=== PATIENT | female | born 1995 | race Caucasian/White ===

== ENCOUNTER 2019-05-14 20:17 | Emergency (ER) | payer MEDICAID ==
[~2019-05-14] VITALS: Ht 160 cm; Wt 86.0 kg
[~2019-05-14 20:17] MED LIST: IBUP-1984 PO
[2019-05-14 20:25] VITALS: BP 120/77
[2019-05-14] MEDS ORDERED: ipratropium/albuterol 3ml nebule NEB ONE (21:35)
[2019-05-14] MEDS ORDERED: predniSONE 20 mg tablet PO ONE (21:35)
[2019-05-14] MEDS ORDERED: PRED20TA PO (21:39)
[2019-05-14] MEDS ORDERED: ALBU8HFA PO (21:39)
== END 2019-05-14 22:35 | disposition home or self-care (01) ==
LOC: ER 20:18
DX: J06.9 Acute upper respiratory infection, unspecified (principal); J45.901 Unspecified asthma with (acute) exacerbation; G89.29 Other chronic pain; F17.200 Nicotine dependence, unspecified, uncomplicated; F12.90 Cannabis use, unspecified, uncomplicated; Z79.899 Other long term (current) drug therapy
CPT/HCPCS: 93005; 94640; 94760; 99283; J7512

== ENCOUNTER 2019-09-15 22:05 | Emergency (ER) | payer MEDICAID ==
[~2019-09-15] VITALS: Ht 160 cm; Wt 86.4 kg
[2019-09-15] MEDS ORDERED: ketorolac trometh. 30mg/ml inj. IV ONE (22:45)
[2019-09-15] MEDS ORDERED: normal saline 1000ML IV soln IVB ONE (22:45)
[2019-09-15] MEDS ORDERED: metoclopramide 5 mg/ml inj IV ONE (22:45)
[2019-09-15] MEDS ORDERED: diphenhydrAMINE 50 mg/ml inj IV ONE (22:45)
[2019-09-15 23:00] VITALS: BP 134/88
== END 2019-09-15 23:32 | disposition home or self-care (01) ==
LOC: ER 22:05
DX: G43.909 Migraine, unspecified, not intractable, without status migrainosus (principal); J45.909 Unspecified asthma, uncomplicated; G89.29 Other chronic pain; Z90.89 Acquired absence of other organs; Z72.89 Other problems related to lifestyle; Z88.8 Allergy status to other drugs, medicaments and biological substances; Z79.899 Other long term (current) drug therapy
CPT/HCPCS: 96374; 96375; 99284; J1200; J1885; J2765; J7030

== ENCOUNTER 2020-10-17 14:51 | Emergency (ER) | payer MEDICAID ==
[~2020-10-17] VITALS: Ht 160 cm; Wt 99.0 kg
[2020-10-17 15:05] VITALS: BP 144/93
[2020-10-17] MEDS ORDERED: HYDR-3972 PO (15:51)
== END 2020-10-17 16:18 | disposition home or self-care (01) ==
LOC: ER 14:52
DX: S93.601A Unspecified sprain of right foot, initial encounter (principal); S93.401A Sprain of unspecified ligament of right ankle, initial encounter; M25.571 Pain in right ankle and joints of right foot; G43.909 Migraine, unspecified, not intractable, without status migrainosus; J45.909 Unspecified asthma, uncomplicated; G89.29 Other chronic pain; F12.90 Cannabis use, unspecified, uncomplicated; Z90.89 Acquired absence of other organs; Z72.89 Other problems related to lifestyle; Z88.8 Allergy status to other drugs, medicaments and biological substances; Z79.899 Other long term (current) drug therapy; X58.XXXA Exposure to other specified factors, initial encounter; Y93.89 Activity, other specified; Y92.89 Other specified places as the place of occurrence of the external cause; Y99.8 Other external cause status
CPT/HCPCS: 73610; 73630; 99284

== ENCOUNTER 2023-06-11 10:24 | Emergency (ER) | payer MEDICAID ==
[~2023-06-11] VITALS: Ht 160 cm; Wt 125.0 kg
[2023-06-11 10:35] VITALS: PULSE 98; RESP 16; TEMP 98.8; O2SAT 97
== END 2023-06-11 11:32 | disposition home or self-care (01) ==
LOC: ER 10:25
DX: L55.0 Sunburn of first degree (principal); G43.909 Migraine, unspecified, not intractable, without status migrainosus; J45.909 Unspecified asthma, uncomplicated; F12.90 Cannabis use, unspecified, uncomplicated; Z88.8 Allergy status to other drugs, medicaments and biological substances; Z79.1 Long term (current) use of non-steroidal anti-inflammatories (NSAID)
CPT/HCPCS: 99281; 99282

== ENCOUNTER 2024-06-10 15:31 | Emergency (ER) | payer BC, MEDICAID, OTHER ==
[~2024-06-10] VITALS: Ht 160 cm; Wt 136.8 kg
[2024-06-10] MEDS ORDERED: ketorolac trometh 30MG/ML vial 30 MG/ML VIAL IM ONE (16:40)
[2024-06-10] MEDS: ketorolac trometh 15mg/ml vial 15 MG/ML ML IM ONE (17:15)
[2024-06-10 17:20] VITALS: BP 148/74; PULSE 78; RESP 16; TEMP 98.3; O2SAT 98
== END 2024-06-10 17:24 | disposition home or self-care (01) ==
LOC: ER 15:32
DX: M79.672 Pain in left foot (principal); G43.909 Migraine, unspecified, not intractable, without status migrainosus; J45.909 Unspecified asthma, uncomplicated; F12.90 Cannabis use, unspecified, uncomplicated; Z90.89 Acquired absence of other organs
CPT/HCPCS: 73630; 96372; 99283; J1885